=== PATIENT | female | born 1945 | race Caucasian/White ===

== ENCOUNTER 2017-12-20 17:33 | Observation (INO) | payer MEDICARE, OTHER ==
[~2017-12-20] VITALS: Ht 162.6 cm; Wt 103.5 kg
--- NOTE | ~2017-12-20 | EC ---
PATIENT:LISA BUTT DATE OF SERVICE: 12/20/17 SEX: F MEDICAL RECORD: [id number] DATE OF : [birth year] LOCATION:D. D.211 AGE OF PATIENT: 72 ADMISSION DATE: 12/20/17 REFERRING PHYSICIAN: INTERPRETING PHYSICIAN: FRAN TERRY MD ECHOCARDIOGRAM REPORT ECHO CHARGES 4 ECHO COMPLETE Date: 12/21 CLINICAL DIAGNOSIS: SYNCOPE HX OF SVT ECHOCARDIOGRAPHIC MEASUREMENTS (adult normal given) AC root (d.<3.7cm) 3.3 cm LV Septum d (<1.2 cm> 1.2 cm Valve Excursion 1.0 cm LV Septum (systole) 1.3 cm Left Atria (s.<4.0cm> 3.4 cm LVPW d(<1.2cm) 1.2 cm RV (d.<2.3cm) 3.1 cm LVPW (sytole) 1.5 cm LV diastole(<5.6CM) 5.1 cm MV E-F(>70mm/sec) cm LV systole 3.1 cm LVOT Diameter 1.6 cm MV exc.(>10mm) 1.6 cm Est.ejection fraction (50-75%) % DOPPLER: LVIT cm/sec A 76.0 cm/sec E 119 cm/sec LA cm/sec RVSP 38 mmHg LVOT 139 cm/sec AOP1/2T 481 m/s Asc. Ao 156 cm/sec RVOT 68 cm/sec RA cm/sec PA 118 cm/sec AV Gradient Peak 9.73 mmHg AV Mean 4.92 mmHg AV Area 1.5 cm MV Gradient Peak 6.28 mmHg MV Mean 2.04 mmHg MV Area cm COMMENTS: Environmental Geologist: Rosie MORLEY Elastic Cutter: 4 Dr. Preciado TAPE# PACS Pericardial Effusion N DATE OF SERVICE: PROCEDURE: Echocardiogram. FINDINGS: 1. Left ventricular chamber size is within normal limits. Left ventricular systolic function is normal. Overall ejection fraction estimated at 60%. 2. Left atrium is within normal limits at 3.4 cm. Right atrium and right ventricle chamber sizes are mildly dilated. 3. Valvular structure have normal structure and motion. ECHOCARDIOGRAM REPORT [id number] LISA BUTT 4. Doppler interrogation reveals mild aortic insufficiency, mild mitral regurgitation, mild tricuspid regurgitation, no other valvular insufficiency or stenosis and pulmonary systolic pressure is estimated 38 mmHg. 5. No evidence of pericardial effusion or left ventricular thrombus. TRANSINT:[id number] Voice Confirmation ID: [id number] DOCUMENT ID: [id number] FRAN TERRY MD at 1057 CC: [id number] DICTATION DATE: 12/21/17 1248 HEALTH INFORMATION ASSISTANT: 12/21/17 1310 ADM IN [place] [id number] [place] [address]
[~2017-12-20 17:33] MED LIST: BETAPACE 80 MG80 MG PO; CITRACAL + D E1 EACH PO; ELIQUIS2.5 MG PO; HYDROCODONE-APA1 TAB PO; LEVO-T125 MCG PO; LIPITOR10 MG PO; MAXZIDE 75/501 TAB PO; MS CONTIN15 MG PO; OXYCODONE HCL5 MG PO; ZYLOPRIM300 MG PO
[2017-12-20 18:06] VITALS: BP 153/69; BMI 38.9
[2017-12-20 18:41] LABS: BASOPHILS 0.1 % (0-2); EOSINOPHILS 1.3 % (0-7); HEMATOCRIT 43.4 % (36.0-48.0); HEMOGLOBIN 14.7 g/dL (12-16); IMMATURE GRANULOCYTES 0.1 % (0-5); LYMPHOCYTES 25.3 % (15-50); MCH 32.2 pg (26.0-34.0); MCHC 33.9 g/dL (31.0-37.0); MCV 95.2 fL (80.0-100.0); MEAN PLATELET VOLUME 11.2 fL (7.4-10.4); MONOCYTES 7.9 % (2-11); NEUTROPHILS 65.3 % (40-80); PLATELET COUNT 196 10x3/uL (130-400); RBC 4.56 10x6/uL (4.00-5.40); RDW 13.4 % (11.5-14.5); WBC 8.8 10x3/uL (4.8-10.8)
[2017-12-20 18:56] LABS: ALBUMIN 3.9 g/dL (3.4-5.0); ALKALINE PHOSPHATASE 109 U/L (46-116); ALT (SGPT) 18 U/L (10-68); BILIRUBIN - TOTAL 0.62 mg/dL (0.2-1.3); CALC OSMOLALITY 286 mosm/kg (275-300); CALCIUM 9.5 mg/dL (8.5-10.1); CARBON DIOXIDE 28.9 mmol/L (21.0-32.0); CHLORIDE - SERUM 102 mmol/L (98-107); GLUCOSE 137 mg/dL (74-106); POTASSIUM - SERUM 3.2 mmol/L (3.5-5.1); PROTEIN - SERUM 7.2 g/dL (6.4-8.2); SODIUM 142 mmol/L (136-145); UREA NITROGEN 19 mg/dL (7-18); eGFR NON AFRICAN AMERICAN 58 mL/min (90-120)
[2017-12-20 19:08] LABS: CKMB 0.8 U/L (0.0-3.6); CREATINE KINASE 124 UL (21-215); MAGNESIUM - SERUM 2.3 mg/dL (1.8-2.4); PHOSPHOROUS 2.7 mg/dL (2.5-4.9); THYROID STIMULATING HORMONE 1.49 uIU/mL (0.36-3.74); TROPONIN-I < 0.017 ng/mL (0.000-0.060)
[2017-12-20 21:01] VITALS: BP 133/58
[2017-12-21] VITALS (7 sets, daily range): BP systolic 116–187; BP diastolic 53–88; Ht 162.6 cm; Wt 103.5 kg
[2017-12-21 00:27] LABS: CKMB 0.8 U/L (0.0-3.6); CREATINE KINASE 95 UL (21-215)
[2017-12-21 00:29] LABS: TROPONIN-I < 0.017 ng/mL (0.000-0.060)
[2017-12-21 06:47] LABS: CKMB 0.8 U/L (0.0-3.6); CREATINE KINASE 98 UL (21-215)
[2017-12-21 06:48] LABS: TROPONIN-I < 0.017 ng/mL (0.000-0.060)
[2017-12-21 07:15] LABS: ANION GAP 14.2 mmol/L (8-16); CARBON DIOXIDE 26.2 mmol/L (21.0-32.0); CREATININE - SERUM 0.9 mg/dL (0.6-1.3); POTASSIUM - SERUM 3.4 mmol/L (3.5-5.1)
[2017-12-22 01:26] VITALS: BP 132/52
[2017-12-22 05:00] VITALS: BP 148/67
[2017-12-22 05:31] LABS: BASOPHILS 0.2 % (0-2); EOSINOPHILS 2.9 % (0-7); HEMATOCRIT 38.1 % (36.0-48.0); HEMOGLOBIN 12.4 g/dL (12-16); IMMATURE GRANULOCYTES 0.2 % (0-5); LYMPHOCYTES 30.5 % (15-50); MCH 31.5 pg (26.0-34.0); MCHC 32.5 g/dL (31.0-37.0); MCV 96.7 fL (80.0-100.0); MEAN PLATELET VOLUME 11.5 fL (7.4-10.4); NEUTROPHILS 56.2 % (40-80); PLATELET COUNT 157 10x3/uL (130-400); RBC 3.94 10x6/uL (4.00-5.40); RDW 13.5 % (11.5-14.5)
[2017-12-22 05:32] LABS: WBC 5.6 10x3/uL (4.8-10.8)
[2017-12-22 05:39] LABS: ANION GAP 11.2 mmol/L (8-16); CALCIUM 8.8 mg/dL (8.5-10.1); CARBON DIOXIDE 26.7 mmol/L (21.0-32.0); CREATININE - SERUM 0.8 mg/dL (0.6-1.3); POTASSIUM - SERUM 3.9 mmol/L (3.5-5.1)
[2017-12-22 08:38] VITALS: BP 149/74
[2017-12-22 11:40] VITALS: BP 143/59
[2017-12-22] MEDS ORDERED: MAXZIDE 75/501 TAB PO (12:41)
== END 2017-12-22 14:45 | disposition home or self-care (01) ==
LOC: D.M2 17:33 → OBSVTIME 12-22 11:52 → D.M2 12-22 14:45
PROVIDERS: Internal Medicine Nephrology
DX: R55 Syncope and collapse (principal); I45.4 Nonspecific intraventricular block; N17.9 Acute kidney failure, unspecified; E87.6 Hypokalemia; E78.5 Hyperlipidemia, unspecified; E03.9 Hypothyroidism, unspecified

== ENCOUNTER → 2019-03-28 10:02 | Outpatient (CLI) | payer MEDICARE ==
[2017-12-21 08:17] VITALS: BMI 38.9
--- NOTE | ~2019-03-28 | ST ---
PATIENT:LISA BUTT MEDICAL RECORD: [id number] SEX: F LOCATION:[facility] ORDER #: ADMISSION DATE: 03/28/19 AGE OF PATIENT: 74 REFERRING PHYSICIAN: INTERPRETING PHYSICIAN: FRAN TERRY MD DATE OF SERVICE: 03/28/2019 INDICATION: Angina, shortness of breath, abnormal ECG. She was exercised on standard Lexiscan protocol with 33 mCi of sestamibi injected at peak stress, 11 mCi used previously for rest images. FINDINGS: Gated SPECT reveals a preserved ejection fraction at 70% with total good wall motioning and thickening and brightening throughout all segments. SPECT imaging Cardiolite was used as myocardial perfusion agent. There is reversibility anteriorly as well as inferiorly. This was basal, mid and apical anterior segments as well as the basal, mid and apical inferior segments. Degree of reversibility is mild. However, the amount of myocardium involved is large. OVERALL IMPRESSION: This is an intermediate to high risk nuclear stress test with a large amount of myocardium at risk for ischemia, but the anterior as well as the inferior segments suggestive of multivessel coronary artery disease. We will proceed with coronary angiography as followup study. TRANSINT:[id number] Voice Confirmation ID: [id number] DOCUMENT ID: [id number] FRAN TERRY MD CC: SHAMAR MCCORMICK [id number] DICTATION DATE: 03/29/19 1249 SPECIAL EDUCATION KINDERGARTEN TEACHER: 03/29/19 2314 DEP CLI 03/28/19 [facility] [address] [place] [address]
--- NOTE | 2019-03-29 16:51 | EC ---
PATIENT:LISA BUTT DATE OF SERVICE: 03/28/19 SEX: F MEDICAL RECORD: [id number] DATE OF : [birth year] [facility] AGE OF PAT[facility]: 74 ADMISSION DATE: 03/28/19 REFERRING PHYSICIAN: INTERPRETING PHYSICIAN: FRAN WALDEN MD ECHOCARDIOGRAM REPORT ECHO CHARGES 4 ECHO COMPLETE Date: 03/28/19 CLINICAL DIAGNOSIS: MURMUR/ANGINA ECHOCARDIOGRAPHIC MEASUREMENTS (adult normal given) AC root (d.<3.7cm) 3.1 cm LV Septum d (<1.2 cm> 1.2 cm Valve Excursion 1.6 cm LV Septum (systole) 1.5 cm Left Atria (s.<4.0cm> 3.9 cm LVPW d(<1.2cm) 1.4 cm RV (d.<2.3cm) 3.9 cm LVPW (sytole) 1.6 cm LV diastole(<5.6CM) 4.1 cm MV E-F(>70mm/sec) cm LV systole 3.0 cm LVOT Diameter 2.0 cm MV exc.(>10mm) 1.1 cm Est.ejection fraction (50-75%) % DOPPLER: LVIT cm/sec A 41.0 cm/sec E 60.0 cm/sec LA cm/sec RVSP 19 mmHg LVOT 120 cm/sec AOP1/2T 527 m/s Asc. Ao 153 cm/sec RVOT 77 cm/sec RA cm/sec PA 107 cm/sec AV Gradient Peak 9.35 mmHg AV Mean 5.45 mmHg AV Area 2.3 cm MV Gradient Peak 3.57 mmHg MV Mean 1.40 mmHg MV Area cm COMMENTS: Longwall Shearer Operator: Rosie MORLEY Mainframe Consultant: 1 Dr. Walden TAPE# PACS Pericardial Effusion N DATE OF SERVICE: 03/28/2019 ECHOCARDIOGRAM DATE OF SERVICE: 03/28/2019 FINDINGS: 1. Left ventricular chamber size is within normal limits. Left ventricular systolic function is normal. Overall ejection fraction estimated at 60%. 2. Left atrium is upper limits of normal at 3.9 cm. Right atrium and right ECHOCARDIOGRAM REPORT [id number] LISA BUTT ventricular chamber sizes are within normal limits. 3. Valvular structures have normal structure and motion. 4. Doppler interrogation reveals mild aortic insufficiency, mild mitral regurgitation and trace tricuspid regurgitation, no other valvular insufficiency or stenosis. Pulmonary systolic pressure is estimated at 18 mmHg. 5. No evidence of pericardial effusion or left ventricular thrombus. TRANSINT:[id number] Voice Confirmation ID: [id number] DOCUMENT ID: [id number] FRAN WALDEN MD at 1651 CC: [id number] DICTATION DATE: 03/29/19 1045 AUDITOR: 03/29/19 1102 DEP CLI 03/28/19 [place] [id number] [place] [id number]
== END | disposition home or self-care (01) ==
LOC: D.HCCARDIO 10:02
PROVIDERS: ATTEND Internal Medicine Interventional Cardiology
DX: R01.1 Cardiac murmur, unspecified (principal)

== ENCOUNTER 2019-04-05 08:42 | Outpatient (CLI) | payer MEDICARE ==
[~2019-04-05] VITALS: Ht 162.6 cm; Wt 104.5 kg
--- NOTE | ~2019-04-05 | HEMODYNAMI ---
PATIENT:LISA BUTT MEDICAL RECORD: [id number] : 45 LOCATION:[facility] ADMISSION DATE: 04/05/19 Generatedon:04/05/201911:07 Patient name: LISA BUTT Patient #: [id number] SSN: [id number] : 1945 Date of study: 04/05/2019 Page: Of Hemodynamic Procedure Report Patient Data Patient Demographics Procedure consent was obtained First Name: LISA Gender: Female Last Name: DAQUAN : 1945 [facility] Initial: RASHI Age: 74 year(s) Patient #: [id number] Race: Other SSN: [id number] Additional ID: [id number] Contact details [address]: [address] [place] [address] [place] State: [place] City: [place] Zip code: [address] Past Medical History Performed procedures and imaging results Date Procedure Procedure Results Comments Echocardiography Stress testing Positive->Intermediate with SPECT MPI risk History of disease Date Diagnosis Comments COPD Hypertension Allergies Allergen Reaction Date Comments Reported Other allergy 04/05/2019 DEMEROL, PCN, SULFA Admission Admission Data Admission Date: 04/05/2019 Admission Time: 8:42 Arrival Date: 04/05/2019 Arrival Time: 0:00 Insurance Payor: Medicare [facility] #: [id number] Height (in.): 64 BSA: 2.1 (m2) Height (cm.): 162.56 BMI: 40.68 (kg/m2) Weight (lbs.): 237 Weight (kg.): 107.5 Medications upon Admission Medications Dosage Times Administered Last Remarks per Delivery Day Date and Time Statin (any) 20 mg 1 Beta Sharan 80 mg 2 (any) Current Diagnosis Diagnosis Description Stable angina Lab Results Lab Result Date: 04/05/2019 Lab Result Time: 0:00 Biochemistry Name Units Result Min Max BUN mg/dl 18 --(---*)-- 7 18 Creatinine mg/dl 1.1 --(--*-)-- 0.6 1.3 eGFR ml/min 51 *-(----)-- 90 120 NONAFRICAN CBC Name Units Result Min Max Hematocrit % 44.8 --(*---)-- 42 54 Hemoglobin g/dl 15.2 --(-*--)-- 13.5 17.5 Procedure Procedure Types Cath Procedure Diagnostic Procedure [facility] w/Coronaries Procedure Description Procedure Date Procedure Date: 04/05/2019 Procedure Start Time: 10:46 Procedure End Time: 10:55 Procedure Staff Name Function Andre Pepe RT Scrub Derik Walden MD Performing Physician Jessica Trevino RT Monitor Angela Nathan RN Nurse Rosalba Amaya RT Scrub Indication Angina RBBB Atrial fibrillation Dyspnea Procedure Data Cath Procedure Fluoroscopy Diagnostic fluoroscopy Total fluoroscopy Time: 0.9 time: 0.9 min min Diagnostic fluoroscopy Total fluoroscopy dose: 390 dose: 390 mGy mGy Contrast Material Contrast Material Type Amount (ml) Isovue 300 50 Entry Location Entry Primary Successful Side Size Upsize Upsize Entry Closure Succes sful Closure Location (Fr) 1 (Fr) 2 (Fr) Remarks Device Remarks Femoral Right 5 Fr Exoseal artery Estimated blood loss: 5 ml Diagnostic catheters Device Type Used For End Catheter Placement MULTIPACK Pigtail 5 Fr Procedure catheter MULTIPACK JL 4.0 5Fr Procedure catheter MULTIPACK 3DRC 5Fr Procedure catheter Procedure Complications No complications Procedure Medications Medication Administration Route Dosage 0.9% NaCl I.V. 100 ml/hr Oxygen etCO2 Nasal cannula 2 l/min Lidocaine 2% added to field 20 Heparin Flush Bag added to field 2 bags (1000units/500ml NS) Versed I.V. 2 mg Fentanyl I.V. 50 mcg Versed I.V. 2 mg Fentanyl I.V. 50 mcg Hemodynamics Rest BSA: 2.1 (m2) HGB: 15.2 (g/dl) O2 Consumption: Estimated: 190.56 (ml/min) O2 Con sumption indexed: Estimated:90.74 (ml/min/m) Heart Rate: 69 (bpm) Snapshots Pre Cath Intra NCS Post Cath Vital Signs Time Heart Resp SPO2 etCO2 NIBP (mmHg) Rhythm Pain Sedation Rate (ipm) (%) (mmHg) Status Level (bpm) 10:20:30 68 19 100 43 Measuring NSR 0 (11) 10(A) , No pain 10:20:53 66 19 100 41.5 176/81(116) NSR 0 (11) 10(A) , No pain 10:25:52 63 19 99 13.6 Measuring NSR 0 (11) 10(A) , No pain 10:31:57 65 13 100 40.8 Measuring NSR 0 (11) 10(A) , No pain 10:39:31 63 11 100 34 Time NSR 0 (11) 10(A) Exceeded , No pain 10:44:30 64 12 99 40 128/58(79) NSR 0 (11) 10(A) , No pain 10:48:49 78 14 99 21.9 138/63(111) NSR 0 (11) 10(A) , No pain 10:53:09 67 12 99 23.4 133/65(99) NSR 0 (11) 10(A) , No pain Medications Time Medication Route Dose Verified Delivered Reason Notes Eff ectiveness by by 10:18:52 0.9% NaCl I.V. 100 Derik Angela used for ml/hr Iram Nathan marketing operations specialist 10:18:59 Oxygen etCO2 2 Derik Angela used for Nasal l/min Iram Nathan procedure cannula RN 10:19:04 Lidocaine 2% added 20ml Derik Derik for local to vial Iram Walden MD anesthetic field 10:19:08 Heparin Flush added 2 Derik Derik used for Bag to bags Iram Walden MD procedure (1000units/500ml field NS) 10:45:19 Versed I.V. 2 mg Derik Angela for Iram Nathan sedation RN 10:45:29 Fentanyl I.V. 50 Derik Angela for mcg Iram Nathan sedation RN 10:50:01 Fentanyl I.V. 50 Derik Angela for mcg Iram Nathan sedation RN 10:50:46 Versed I.V. 2 mg Derik Angela for Iram Nathan sedation formula room worker Log Time Note 8:31:35 Informed consent obtained and on chart 8:47:54 Patient allergic to Other allergyDEMEROL, PCN, SULFA 8:48:06 Arrival Date: 04/05/2019 12:00:00 AM 8:49:36 Insurance Payor : Medicare 8:50:01 Patient Height : 64 inches 8:50:05 Patient Weight : 237 lbs 8:54:19 Current Diagnosis : Stable angina 8:57:12 Indication : Angina 8:57:44 Indication : RBBB 8:57:54 Indication : Atrial fibrillation 8:58:01 Indication : Dyspnea 9:35:04 Procedure Status Elective Heart Cath (OP). 9:35:06 Time tracking: Regular hours (M-F 7:00 - 5:00) 9:35:10 Plan of Care:Hemodynamics will remain stable., Cardiac rhythm will remain stable., Comfort level will be maintained., Respiratory function will remain adequate., Patient/ family verbilizes understanding of procedure., Procedure tolerated without complication., Recovers from procedure without complications.. 10:07:01 Andre Pepe RT(R) sent for patient. Start room use. 10:12:52 Patient received from Pre/Post Procedure Room to CCL 2 Alert and oriented. Tansferred to table in Supine position. 10:12:53 Warm blankets applied, and raleigh hugger turned on for patient comfort. 10:12:54 ECG and BP/O2 sat monitors applied to patient. 10:12:54 Correct patient and procedure confirmed by team. 10:18:42 Vital chart was started 10:18:52 0.9% NaCl 100 ml/hr I.V. was administered by Angela Nathan RN; used for procedure; 10:18:59 Oxygen 2 l/min etCO2 Nasal cannula was administered by Angela Nathan RN; used for procedure; 10:19:04 Lidocaine 2% 20ml vial added to field was administered by Derik Walden MD; for local anesthetic; 10:19:08 Heparin Flush Bag (1000units/500ml NS) 2 bags added to field was administered by Derik Walden MD; used for procedure; 10:22:15 Baseline sample Acquired. 10:22:20 Rhythm: sinus rhythm 10:22:22 Full Disclosure recording started 10:22:39 Pre-procedure instructions explained to patient. 10:22:39 H&P Date Dictated: 03/13/2019 Within 30 days and on chart., H&P Addendum completed by physician on day of procedure. (MUST COMPLETE FOR ALL OUTPATIENTS). 10:22:40 Pre-op teaching completed and patient verbalized understanding. 10:22:41 Family in patients room. 10:22:42 Patient NPO since Midnight. 10:22:49 Is patient on blood thinner?No 10:22:50 Patient diabetic? No. 10:22:52 Patient not . Patient is over age 55. 10:22:53 Patient not . Patient is over age 55. 10:22:56 Previous problem with sedation/anesthesia? No ? 10:22:58 Snore? No 10:23:10 Sleep apnea? No 10:23:12 Deviated septum? No 10:23:13 Sticks out tongue? Yes 10:23:13 Opens mouth fully? Yes 10:23:15 Airway obstruction? No ? 10:23:18 Dentures? No ? 10:23:24 Pre procedure: right dorsailis pedis pulse 2+ Normal; easily identifiable; not easily obliterated 10:23:30 IV patent on arrival in right antecubital with 0.9% NaCl at O. 10:24:43 Lab Result : Hemoglobin 15.2 g/dl 10:24:43 Lab Result : Hematocrit 44.8 % 10:24:43 Lab Result : eGFR NONAFRICAN 51 ml/min 10:24:43 Lab Result : BUN 18 mg/dl 10:24:43 Lab Result : Creatinine 1.1 mg/dl 10:24:46 Lab results completed and on chart. 10:24:49 Right groin area was prepped with chlora-prep and draped in sterile fashion 10:24:50 Sharps counted by scrub and verified by R.N. 10:24:50 Alarms reviewed by R. N. 10:25:32 PT. IS RESERVE LEFT ARM DUE TO MASTECTOMY. PULSE IS TOO WEAK IN RT. WRIST 10:25:35 ACIST Syringe (84022) opened to sterile field. 10:25:35 Use device set Femoral Dx 10:25:36 Bag Decanter () opened to sterile field. 10:25:37 ACIST Manifold (68939) opened to sterile field. 10:25:37 ACIST Hand Control (58311) opened to sterile field. 10:25:41 Tegaderm 4 x 4 (1626W) opened to sterile field. 10:25:42 Medline Cath Pack ([id number]) opened to sterile field. 10:25:43 DIAGNOSTIC Multipack 5Fr catheter set (GT2954) opened to sterile field. 10:25:44 SHEATH 5FR [place] (XPD406) opened to sterile field. 10:25:45 EMERALD Guide Wire (101-594) opened to sterile field. 10:37:52 Zero performed for pressure channel P1 10:39:59 Diagnostic Cath Status : Elective 10:40:00 PCI Cath Status : Elective 10:44:29 --------ALL STOP TIME OUT------ 10:44:30 Final Timeout: patient, procedure, and site verified with staff and physician. All members of the team are in agreement. 10:44:31 Right groin site verified by team. 10:44:35 Fire Safety Assessment: A--An alcohol-based skin anteseptic being used preoperatively., C--Open oxygen or nitrous oxide is being used., D--An ESU, laser, or fiber-optic light is being used. 10:44:37 Physical assessment completed. ASA score P 2 - A patient with mild systemic disease as per Derik Walden MD. 10:44:41 3a) 45-59 Moderately reduced kidney function. 10:44:44 Maximum allowable contrast dose (3.7 X eGFR X 0.75)142 ml. 10:44:52 Sedation plan: IV Moderate Sedation Medication:Versed, Fentanyl 10:45:19 Versed 2 mg I.V. was administered by Angela Nathan RN; for sedation; 10:45:29 Fentanyl 50 mcg I.V. was administered by Angela Nathan RN; for sedation; 10:46:30 Procedure started. 10:46:39 Local anesthetic to right femoral artery with Lidocaine 2% by Derik Walden MD.INITIAL ACCESS ONLY 10:48:03 A 5 Fr sheath was inserted into the Right Femoral artery 10:48:14 A MULTIPACK Pigtail 5 Fr catheter was advanced over the wire and used for Procedure. 10:48:30 LV gram done using VIRK 10:48:37 Injector settings: Ml/sec: 10, Volume: 20, 10:48:51 EF : 60 % 10:48:55 Catheter removed. 10:49:23 A MULTIPACK JL 4.0 5Fr catheter was advanced over the wire and used for Procedure. 10:50:01 Fentanyl 50 mcg I.V. was administered by Angela Nahtan RN; for sedation; 10:50:40 LCA angiography performed. 10:50:43 Catheter removed. 10:50:46 Versed 2 mg I.V. was administered by Angela Nathan RN; for sedation; 10:50:54 A MULTIPACK 3DRC 5Fr catheter was advanced over the wire and used for Procedure. 10:51:36 RCA angiography performed. 10:51:37 Catheter removed. 10:51:39 EXOSEAL 5Fr (EX500) opened to sterile field. 10:52:12 Sheath removed intact; hemostasis achieved with Exoseal to the Right Femoral artery. 10:52:17 Procedure ended.(Physican Out) 10:52:33 Fluoroscopy time 00.90 minutes. 10:52:36 Fluoroscopy dose: 390 mGy 10:52:36 Flurop Dose total: 390 10:53:51 Contrast amount:Isovue 300 50ml. 10:54:17 Maximum allowable dose exceeded? No. 10:54:21 Cumulative Air Kerma 390mGy. 10:54:24 Sharps counted by scrub and verified by R.N. 10:54:27 Post-op/insertion site Right Femoral artery dressed using a 4 x 4 and Tegaderm. 10:54:30 Post-procedure physical assessment completed. ASA score P 2 - A patient with mild systemic disease as per Derik Walden MD. 10:54:33 Post procedure rhythm: sinus rhythm 10:54:35 Estimated blood loss: 5 ml 10:54:36 Patient needs reinforcement of post procedure teaching. 10:54:36 Post procedure instruction explained to patient.Patient verbalizes understanding. 10:55:22 Procedure and supply charges have been captured, reviewed, submitted and are correct. 10:55:25 Procedure Complication : No complications 10:55:34 Vital chart was stopped 10:55:35 See physician's report for complete and final results. 10:55:36 Report given to Pre/Post Procedure Room. 10:55:39 Patient transfered to Pre/Post Procedure Room with Bed. 10:55:41 Full Disclosure recording stopped 10:55:41 Procedure ended. 10:55:43 End room use (Document Last) Device Usage Item Name Manufacture Quantity Catalog Hospital Part Current Minimal L ot# / Number Charge Number Stock Stock Serial# Code [facility] Acist 1 66984 860903 460690 [id number] 20 Neurotrack (29025) Elevaate Inc Bag Microtek 1 642184 19973 448532 5 Decanter Medical Inc. (2001S) ACIST Hand Acist 1 02007 500707 896170 318643 5 Control Medical (39819) Systems Inc ACIST Acist 1 52015 801614 529689 251244 5 Manifold Medical (43393) Systems Inc Tegaderm 4 3M 1 1626W 510512 118509 858862 5 x 4 (1626W) Medline Medline 1 [id number] 625439 29031 893356 5 Cath Pack ([id number]) DIAGNOSTIC Cardinal 1 XN2220 877230 26871 195646 30 inBOLD Business Solutions 5Fr catheter set (AL3251) SHEATH 5FR Terumo 1 HEH708 006598 745949 790076 5 [place] (ODU836) EMERALD Cardinal 1 352-321 375121 564428 579127 5 Guide Wire Health (525-248) MULTIPACK Cardinal 1 456387 5 Pigtail 5 Health Fr catheter MULTIPACK Cardinal 1 628608 5 JL 4.0 5Fr Health catheter MULTIPACK Cardinal 1 508344 5 3DRC 5Fr Health catheter EXOSEAL 5Fr Cardinal 1 EX500 560246 986225 895777 10 (EX500) Health Signature Audit [place] Stage Time Signature Unsigned Intra-Procedure 04/05/2019 Jessica Trevino 11:00:00 AM RT(R) RT(R) 04/05/2019 11:05:32 AM Intra-Procedure 04/05/2019 Jessica Trevino 11:07:07 AM RT(R) Signatures Performing Physician : Signature : Derik Walden MD Date : Time : Monitor : Jessica Trevino Signature : RT Date : Time : Nurse : Angela Nathan RN Signature : Date : Time : [address] [address]
[2019-04-05 09:09] VITALS: BP 183/88; Ht 162.6 cm; Wt 104.5 kg
[2019-04-05 09:22] LABS: BASOPHILS 0.1 % (0-2); EOSINOPHILS 1.7 % (0-7); HEMATOCRIT 44.8 % (36.0-48.0); HEMOGLOBIN 15.2 g/dL (12-16); IMMATURE GRANULOCYTES 0.1 % (0-5); LYMPHOCYTES 23.1 % (15-50); MCH 32.1 pg (26.0-34.0); MCHC 33.9 g/dL (31.0-37.0); MCV 94.7 fL (80.0-100.0); MEAN PLATELET VOLUME 11.2 fL (7.4-10.4); MONOCYTES 6.9 % (2-11); NEUTROPHILS 68.1 % (40-80); RBC 4.73 10x6/uL (4.00-5.40); RDW 13.7 % (11.5-14.5); WBC 8.1 10x3/uL (4.8-10.8)
[2019-04-05 09:30] LABS: PLATELET COUNT 195 10x3/uL (130-400)
[2019-04-05 09:38] LABS: ANION GAP 10.2 mmol/L (8-16); CALCIUM 10.1 mg/dL (8.5-10.1); CARBON DIOXIDE 30.1 mmol/L (21.0-32.0); CREATININE - SERUM 1.1 mg/dL (0.6-1.3); POTASSIUM - SERUM 4.3 mmol/L (3.5-5.1)
--- NOTE | 2019-04-05 11:11 | NUR ---
PT ARRIVED BY STRETCHER. PLACED ON MONITORS. ASSESSMENT COMPLETED. FAMILY AT BEDSIDE. CALL LIGHT WITHIN REACH.
--- NOTE | 2019-04-05 11:26 | NUR ---
RIGHT GROIN DRESSING C/D/I. NO S/S OF HEMATOMA NOTED. VSS. CALL LIGHT WITHIN REACH. FAMILY AT BEDSIDE.
--- NOTE | 2019-04-05 12:00 | NUR ---
RIGHT GROIN DRESSING C/D/I. NO S/S OF HEMATOMA NOTED. VSS. FAMILY AT BEDSIDE. PT ON BEDPAN. VOIDED WITHOUT DIFFICULTY. EVERARDO-CARE GIVEN. PT'S HEAD OF BED SLOWLY INC TO 30 DEGREES. TOLERATING WELL.
--- NOTE | 2019-04-05 12:10 | NUR ---
DR. TERRY AT BEDSIDE SPEAKING WITH PT AND PT'S FAMILY.
--- NOTE | 2019-04-05 12:30 | NUR ---
PT MORE AWAKE. SET UP WITH SANDWICH TRAY AND DRINK. FAMILY AT BEDSIDE TO ASSIST. RIGHT GROIN DRESSING C/D/I. NO S/S OF HEMATOMA NOTED. RIGHT PEDAL PULSE PALPABLE. VSS.
--- NOTE | 2019-04-05 12:50 | NUR ---
DISCUSSED DISCHARGE INSTRUCTIONS WITH PT AND PT'S FAMILY. THEY VOICED UNDERSTANDING. RIGHT AC PIV D/C'D WITH CATH TIP INTACT. TOLERATED WELL. VSS. RIGHT GROIN DRESSING C/D/I. NO S/S OF HEMATOMA NOTED. RIGHT PEDAL PULSE PALPABLE. PT INSTRUCTED TO GET UP AND DRESSED. FAMILY AT BEDSIDE TO ASSIST.
--- NOTE | 2019-04-05 13:15 | NUR ---
PT TAKEN OUT TO VEHICLE BY WHEELCHAIR. STOPPED AT RESTROOM. VOIDED WITHOUT DIFFICULTY. RIGHT GROIN DRESSING C/D/I. NO S/S OF HEMATOMA NOTED. NO S/S OF DISTRESS NOTED. ALL BELONGINGS AND PAPERWORK IN HAND.
--- NOTE | 2019-04-05 14:45 | OP ---
PATIENT NAME: LISA BUTT MEDICAL RECORD: [id number] :45 LOCATION:D.CAT ADMISSION DATE: SURGEON: FRAN TERRY MD DATE OF OPERATION: 04/05/2019 PROCEDURES: 1. Left heart catheterization. 2. Selective coronary angiography. 3. Left ventriculogram. INDICATION: Angina, abnormal nuclear stress test. DESCRIPTION OF PROCEDURE: After informed consent was obtained and after a detailed description of risks, benefits as well as alternative therapies, the patient elected to proceed with angiogram and heart catheterization. The right femoral area was prepped and draped in normal sterile fashion. Right femoral artery was cannulated via modified Seldinger technique with placement of 6-Kenyan sheath. All catheters exchanged through this sheath. FINDINGS: Left ventriculogram was performed in standard 30-degree VIRK view, reveals good cardiac wall motion, ejection fraction estimated 60%. SELECTIVE CORONARY ANGIOGRAPHY: 1. Left main is with no significant angiographic disease. 2. Left anterior descending has mild irregularities, but no flow-limiting stenosis. 3. The left circumflex has mild irregularities, but no flow-limiting stenosis. 4. Right coronary has mild irregularities, but no flow-limiting stenosis. OVERALL IMPRESSION: Minimal coronary artery disease is present. No flow-limiting stenosis. Preserved left ventricular function. TRANSINT:[id number] Voice Confirmation ID: [id number] DOCUMENT ID: [id number] FRAN TERRY MD at 1445 CC: [id number] DICTATION DATE: 04/05/19 1102 MEDICAL RECORDS CUSTODIAN: 04/05/19 1245 DEP CLI 04/05/[address] [address]
== END 2019-04-05 13:15 | disposition home or self-care (01) ==
LOC: D.CATH 08:42
PROVIDERS: ATTEND Internal Medicine Interventional Cardiology
DX: I25.119 Atherosclerotic heart disease of native coronary artery with unspecified angina pectoris (principal); Z01.812 Encounter for preprocedural laboratory examination